=== PATIENT | male | born 1980 | race Caucasian/White ===

== ENCOUNTER 2018-11-06 11:46 | Emergency (ER) | payer MEDICAID, OTHER ==
[~2018-11-06] VITALS: Ht 175.3 cm; Wt 80.7 kg
[2018-11-06 11:58] VITALS: BP 128/81
== END 2018-11-06 12:17 | disposition home or self-care (01) ==
LOC: ER 11:49
DX: L27.1 Localized skin eruption due to drugs and medicaments taken internally (principal); F17.210 Nicotine dependence, cigarettes, uncomplicated; F12.10 Cannabis abuse, uncomplicated; F15.10 Other stimulant abuse, uncomplicated; F20.9 Schizophrenia, unspecified